=== PATIENT | male | born 1990 | race Caucasian/White ===

== ENCOUNTER 2021-05-25 12:07 | Emergency (ER) | payer OTHER, SELFPAY ==
[2021-05-25 12:10] VITALS: BP 174/91; PULSE 84; RESP 16; TEMP 36.5; O2SAT 97; BMI 26.6
[2021-05-25] MEDS: ONDANSETRON 4 MG/2 ML INJ (12:29)
[2021-05-25] MEDS: SODIUM CHLORIDE 0.9% 1,000 ML 1000 ML IV (12:29)
[2021-05-25 12:33] LABS: Appearance Urine UA SL CLOUDY; Bilirubin Urine UA NEGATIVE (NEGATIVE); Color Urine UA YELLOW; Glucose Urine UA NEGATIVE (Negative); Ketones Urine UA NEGATIVE (NEGATIVE); Leukocyte Esterase Urine UA NEGATIVE (NEGATIVE); Nitrite Urine UA NEGATIVE (Negative); Occult Blood Urine UA 3+ (Negative); Protein Urine UA TRACE (Negative); Urobilinogen Urine UA 0.2 E.U./dL (0.2); pH Urine UA 6.5 (4.5-8.0)
[2021-05-25 12:34] LABS: Add Manual Diff / Slide Review NO; Basophils Absolute Auto 0 /uL (0-100); Basophils Percent Auto 0.4 % (0-2); Eosinophils Absolute Auto 100 /uL (0-450); Eosinophils Percent Auto 0.8 % (2-4); Hemoglobin 15.4 g/dL (13.5-17.5); Lymphocytes Absolute Auto 3000 /uL (1100-4500); Lymphocytes Percent Auto 37.9 % (25-40); Mean Corpuscular HGB Conc 34.3 % (30-36); Mean Corpuscular Hemoglobin 30.2 PG (26-34); Monocytes Absolute Auto 700 /uL (0-900); Monocytes Percent Auto 8.8 % (3-14); Neutrophils Absolute Auto 4100 /uL (1500-7000); Neutrophils Percent Auto 52.1 % (50-75); Platelet Count 206 X10^3/uL (150-400); Red Blood Cell Count 5.11 X10^6/uL (4.5-5.9); Red Cell Distribution Width 13.2 % (11.6-14.8); White Blood Cell Count 7.9 X10^3/uL (4.5-11.0)
[2021-05-25 12:36] LABS: Alanine Aminotransferase 33 IU/L (<50); Albumin 4.8 g/dL (3.5-5.0); Albumin Globulin Ratio 1.5 (1.0-2.8); Alkaline Phosphatase 64 U/L (38-126); Aspartate Aminotransferase 26 IU/L (17-59); BUN Creatinine Ratio 12.2 (6-22); Bilirubin Total 0.4 mg/dL (0.2-1.3); Blood Urea Nitrogen 12 mg/dL (9-20); Calcium 9.5 mg/dL (8.4-10.2); Carbon Dioxide 27 mmol/L (22-32); Chloride 106 mmol/L (98-107); Estimated Glomerular Filt Rate > 60.0 mL/min (>60); Globulin 3.1 g/dL (1.7-4.1); Glucose 137 mg/dL (70-100); HEMOLYSIS < 15 (0-50); Potassium 4.1 mmol/L (3.4-5.1); Sodium 143 mmol/L (137-145); Total Protein 7.9 g/dL (6.3-8.2)
--- NOTE | 2021-05-25 12:59 | ED_ITS ---
HPI - Back Pain/Injury General Chief Complaint: Back Pain/Injury Stated Complaint: Lower Back and Abd Pain Time Seen by Provider: 05/25/21 12:42 Source: patient Mode of arrival: Ambulatory History of Present Illness HPI Narrative: Patient is an otherwise healthy 30-year-old male who is here for evaluation of right-sided flank pain that started this morning a couple hours prior to arrival here in the ER. He states that he woke up at 1000 hours in the morning. The pain that he is having actually woke him up. It has since radiated down towards his right lower quadrant. He has never had a kidney stone before. Has not tried anything for the symptoms prior to arrival. He states it is not worse with movement or palpation. No fevers. Related Data Previous Rx's Medication Instructions Recorded hydrocodone 5 mg-acetaminophen 325 1 tab PO Q4-6H PRN #7 tab 05/25/21 mg tablet ondansetron 4 mg disintegrating 4 mg PO Q6H PRN #14 tab 05/25/21 tablet Allergies Allergy/AdvReac Type Severity Reaction Status Date / Time No Known Drug Allergies Allergy Verified 05/25/21 12:13 Review of Systems Constitutional Constitutional: Reports system reviewed and no additional complaints, except as documented Gastrointestinal Gastrointestinal: Reports as per HPI and Reports system reviewed and no additi onal complaints, except as documented Genitourinary Genitourinary: Reports system reviewed and no additional complaints, except as documented and Reports as per HPI Musculoskeletal Musculoskeletal: Reports system reviewed and no additional complaints, except as documented and Reports as per HPI Integumentary/Breasts Skin/Breast: Reports system reviewed and no additional complaints, except as documented Hematologic/Lymphatic On Anticoagulants: No Patient History Medical History Healthy adult Social History Smoking Status: Unknown if ever smoked Smoking Status: Unknown if ever smoked alcohol intake frequency: holidays/special occasions only Substance Use Type: does not use Exam Initial Vital Signs Initial Vital Signs: Vital Signs Temperature 97.7 F 05/25/21 12:10 Pulse Rate 84 05/25/21 12:10 Respiratory Rate 16 05/25/21 12:10 Blood Pressure 174/91 H 05/25/21 12:10 Pulse Oximetry 97 05/25/21 12:10 HENSC Head: normal to inspection and normocephalic Resp Effort & Inspection: normal respiratory effort Cardio Rate: regular rate GI Inspection: normal to inspection Other: Patient does have tenderness on the right side of his abdomen but does not seem to be made worse by palpation. Back/Spine/Pelvis Other: Tenderness located his right flank not made worse with palpation. Skin General: no rashes or lesions noted Neuro General: patient alert, patient awake and moves all extremities Extrem General: normal to inspection and capillary refill normal Psych Appearance: grossly normal and well kempt Course Orders Ordered: ED Orders 05/25/21 12:17 CMP [Comprehensive Metabolic Panel] Stat Complete Blood Count AUTO DIFF Stat 05/25/21 12:24 Urinalysis and Microscopic Stat 05/25/21 13:00 CT kidney ureter bladder (KUB) Stat Discontinued Medications Hydromorphone HCl (Hydromorphone 1 Mg Inj) 1 mg IV NOW ONE Stop: 05/25/21 13:01 Last Admin: 05/25/21 13:07 Dose: 1 mg Documented by: TRINH Sodium Chloride (Normal Saline 0.9%) 1,000 mls @ 1,000 mls/hr IV BOLUS ONE Stop: 05/25/21 13:20 Last Infusion: 05/25/21 13:34 Dose: 0 mls/hr Documented by: Admin: 05/25/21 12:29 Dose: 1,000 mls/hr Documented by: JUAN Ketorolac Tromethamine (Ketorolac 30 Mg/Ml Vial) 30 mg IV NOW ONE Stop: 05/25/21 13:01 Last Admin: 05/25/21 13:07 Dose: 30 mg Documented by: TRINH Vital Signs Vital signs: Vital Signs - 8 hr 05/25/21 12:10 05/25/21 13:56 Temperature 97.7 F Pulse Rate 84 69 Respiratory Rate 16 18 Blood Pressure 174/91 H 119/69 Pulse Oximetry 97 96 MDM - Back Pain/Injury Lab Data Attestation: I reviewed the patient's lab results. Result diagrams: 05/25/21 12:17 05/25/21 12:17 Labs: Lab Results 05/25/21 05/25/21 05/25/21 Range/Units 12:17 12:17 12:24 WBC 7.9 (4.5-11.0) X10^3/uL RBC 5.11 (4.5-5.9) X10^6/uL Hgb 15.4 (13.5-17.5) g/dL Hct 45.0 (41-53) % MCV 88.0 (80-100) fL MCH 30.2 (26-34) PG MCHC 34.3 (30-36) % RDW 13.2 (11.6-14.8) % Plt Count 206 (150-400) X10^3/uL Neut % (Auto) 52.1 (50-75) % Lymph % (Auto) 37.9 (25-40) % [place] % (Auto) 8.8 (3-14) % Eos % (Auto) 0.8 L (2-4) % Baso % (Auto) 0.4 (0-2) % Neut # (Auto) 4100 (2327-8249) /uL Lymph # (Auto) 3000 (0360-6599) /uL [place] # (Auto) 700 (0-900) /uL Eos # (Auto) 100 (0-450) /uL Baso # (Auto) 0 (0-100) /uL Sodium 143 (137-145) mmol/L Potassium 4.1 (3.4-5.1) mmol/L Chloride 106 (98-107) mmol/L Carbon Dioxide 27 (22-32) mmol/L BUN 12 (9-20) mg/dL Creatinine 0.98 (0.66-1.25) mg/dL Estimated GFR > 60.0 (>60) mL/min BUN/Creatinine Ratio 12.2 (6-22) Glucose 137 H (70-100) mg/dL Calcium 9.5 (8.4-10.2) mg/dL Total Bilirubin 0.4 (0.2-1.3) mg/dL AST 26 (17-59) IU/L ALT 33 (<50) IU/L Alkaline Phosphatase 64 (38-126) U/L Total Protein 7.9 (6.3-8.2) g/dL Albumin 4.8 (3.5-5.0) g/dL Globulin 3.1 (1.7-4.1) g/dL Albumin/Globulin Ratio 1.5 (1.0-2.8) Urine Color Yellow Urine Appearance Sl cloudy Urine pH 6.5 (4.5-8.0) Ur Specific [place] 1.020 (1.000-1.035) Urine Protein Trace H (Negative) Urine Glucose (UA) Negative (Negative) g/dL Urine Ketones Negative (NEGATIVE) Urine Occult Blood 3+ H (Negative) Urine Nitrate Negative (Negative) Urine Bilirubin Negative (NEGATIVE) Urine Urobilinogen 0.2 (0.2) E.U./dL Ur Leukocyte Esterase Negative (NEGATIVE) Urine RBC 10-30/hpf H (0-5/HPF) Urine WBC None seen (0-5/HPF) Urine Bacteria None seen (None) Ur Culture Indicated? Cult not indicated Imaging Data CT scan - abdomen/pelvis: Radiologist's Impression: [address] [address] [address] Scan Report Signed Patient: Sarath Montgomery MR#: [id number] : 1990 Acct:[id number] Age/Sex: 30 / M Date of Service: 05/25/21 Loc: ED Accession Number: [id number] ?? Procedure: CT kidney ureter bladder (KUB) Ordering Provider: Medardo Hurtado D.O. PROCEDURE:? CT KIDNEY URETER BLADDER (KUB) ? INDICATIONS:? Eval for right-sided stone ? TECHNIQUE:? Axial sections were acquired from the lung bases to the pubic symphysis.? Coronal and sagittal reformats were performed.? For radiation dose reduction, the following was used: ?automated exposure control, adjustment of mA and/or kV according to patient size.? ? COMPARISON:? None. ? FINDINGS:? Image quality:? Excellent.? ? Lung bases:? Unremarkable.? ? A small hiatal hernia is incidentally noted.? Heart:? No significant findings. ? URINARY: Right Kidney:? Moderate right-sided hydronephrosis is seen and there is perinephric fat stranding.? No nonobstructing kidney stones are seen.? Right Ureter:? Moderate right-sided hydroureter is seen.? There is a 2 mm obstructing right ureterovesicular junction stone, as on series 4, image 37 and on series 2 image 77. ? ? Left Kidney: ? No stones or hydronephrosis. Left Ureter:? No hydroureter.? ? Bladder:? Normal wall thickness. No stones. ? ? ? ABDOMEN: Liver:? Diffuse fatty liver infiltration is noted.? The liver is normal in size and demonstrates no focal lesions. Gallbladder:? Unremarkable.? ? Biliary ducts:? Unremarkable.? ? Pancreas:? Unremarkable.? ? Spleen:? Unremarkable.? ? Adrenal Glands:? Unremarkable.? ? ? Stomach and Bowel:? Stomach, small bowel loops, and colon are unremarkable.? A normal appendix is incidentally noted.? Peritoneum:? No abnormal intraperitoneal fluid.? No free air.? ? Ventral Wall: ? No hernia.? Abdominal Nodes:? No enlarged retroperitoneal or mesenteric lymph nodes.? Vessels:? Aorta and inferior vena cava are normal in size.? ? PELVIS: Pelvic Organs:? Unremarkable.? ? Pelvic Nodes: Unremarkable. Miscellaneous: No inguinal hernias are seen. ? ? ? Bones:? Unremarkable. ? IMPRESSION:? ? 1 mm obstructing stone seen at the right ureterovesicular junction, with associated moderate right-sided hydroureter and hydronephrosis.? A small amount of right- sided perinephric fat stranding is seen. ? No nonobstructing kidney stones are seen. [facility] Narrative Medical decision making narrative: Patient was uncomfortable upon arrival. Right-sided flank pain radiating down to his right abdomen. Vital signs unremarkable. CT scan shows 1 mm distal ureteral stone which does correspond with the discomfort that he is having. No fevers. Kidney functions unremarkable. Urinalysis does not show any signs of infection. No indication for antibiotics per full sent home with symptom treatment. He was informed of the findings on the CT scan. Was given strict return precautions and follow-up instructions. He expressed understanding and agreement. Discharge Plan Departure Patient Disposition: Home Clinical Impression: Right ureteral stone Instructions: DI for Kidney Stones Activity Restrictions/Additional Instructions: Take the medications as needed. Be sure to stay hydrated. Return to the emergency department for fevers, pain is not controlled, inability to tolerate fluids or inability to urinate. Contact your primary doctor for follow-up. Prescriptions: New ondansetron 4 mg tablet,disintegrating 4 mg PO Q6H PRN (Reason: nausea and vomiting) Qty: 14 0RF hydrocodone-acetaminophen 5-325 mg tablet 1 tab PO Q4-6H PRN (Reason: pain) Qty: 7 0RF
--- NOTE | 2021-05-25 13:00 | DI.CT.S_ITS ---
PROCEDURE: CT KIDNEY URETER BLADDER (KUB) INDICATIONS: Eval for right-sided stone TECHNIQUE: Axial sections were acquired from the lung bases to the pubic symphysis. Coronal and sagittal reformats were performed. For radiation dose reduction, the following was used: automated exposure control, adjustment of mA and/or kV according to patient size. COMPARISON: None. FINDINGS: Image quality: Excellent. Lung bases: Unremarkable. A small hiatal hernia is incidentally noted. Heart: No significant findings. URINARY: Right Kidney: Moderate right-sided hydronephrosis is seen and there is perinephric fat stranding. No nonobstructing kidney stones are seen. Right Ureter: Moderate right-sided hydroureter is seen. There is a 2 mm obstructing right ureterovesicular junction stone, as on series 4, image 37 and on series 2 image 77. Left Kidney: No stones or hydronephrosis. Left Ureter: No hydroureter. Bladder: Normal wall thickness. No stones. ABDOMEN: Liver: Diffuse fatty liver infiltration is noted. The liver is normal in size and demonstrates no focal lesions. Gallbladder: Unremarkable. Biliary ducts: Unremarkable. Pancreas: Unremarkable. Spleen: Unremarkable. Adrenal Glands: Unremarkable. Stomach and Bowel: Stomach, small bowel loops, and colon are unremarkable. A normal appendix is incidentally noted. Peritoneum: No abnormal intraperitoneal fluid. No free air. Ventral Wall: No hernia. Abdominal Nodes: No enlarged retroperitoneal or mesenteric lymph nodes. Vessels: Aorta and inferior vena cava are normal in size. PELVIS: Pelvic Organs: Unremarkable. Pelvic Nodes: Unremarkable. Miscellaneous: No inguinal hernias are seen. Bones: Unremarkable. IMPRESSION: 1 mm obstructing stone seen at the right ureterovesicular junction, with associated moderate right-sided hydroureter and hydronephrosis. A small amount of right-sided perinephric fat stranding is seen. No nonobstructing kidney stones are seen. Incidental note is made of: Small hiatal hernia Normal appendix Dictated by: Wilbert Jones M.D. on 05/25/2021 at 12:31 Approved by: Wilbert Jones M.D. on 05/25/2021 at 12:34
[2021-05-25] MEDS: KETOROLAC 30 MG/ML VIAL IV (13:07)
[2021-05-25] MEDS: HYDROMORPHONE 1 MG INJ IV (13:07)
[2021-05-25 13:15] LABS: Bacteria Urine None Seen; Culture Indicated Urine Cult Not Indicated; RBC Urine 10-30/HPF (0-5/HPF); WBC Urine None Seen (0-5/HPF)
[2021-05-25 13:56] VITALS: BP 119/69; PULSE 69; RESP 18; O2SAT 96
== END 2021-05-25 14:03 | disposition home or self-care (01) ==
PROVIDERS: Emergency Provider Emergency Medicine
DX: N20.1 Calculus of ureter (principal)
CPT/HCPCS: 74176; 80053; 81001; 85025; 96361; 96374; 96375; 99283; 99284; J1170; J1885; J2405